=== PATIENT | female | born 1950 | race African-American/Black ===

== ENCOUNTER 2024-02-03 09:37 | Day surgery (SDC) | payer OTHER ==
[~2024-02-03] VITALS: Ht 162.6 cm; Wt 96.2 kg
[~2024-02-03 09:37] MED LIST: BALANCED SALT IRRIG SOLN 15ML ONE; BALANCED SALT IRRIG SOLN COMB1 500ML OP NR; CYCLOPENTOLATE HCL 1% OPHTH DROPS 2ML ONE; HYALURONATE SODIUM 10MG/ML 0.55ML SYRINGE IO ONE
[2024-02-03] MEDS ORDERED: HYALURONATE SODIUM 10MG/ML 0.55ML SYRINGE IO ONE ×2 (16:48→17:49)
[2024-02-03] MEDS ORDERED: MIDAZOLAM HCL 2 MG/2 ML VIAL ONE (17:08)
[2024-02-03] MEDS ORDERED: ONDANSETRON HCL 4MG/2ML INJ IV PRN (18:00)
[2024-02-03] MEDS ORDERED: HYDRALAZINE 20MG/ML VIAL IV NR (18:00)
[2024-02-03] MEDS ORDERED: MEPERIDINE HCL/PF 25MG/ML CPJ IV PRN (18:00)
[2024-02-03] MEDS: HYDROMORPHONE HCL/PF 1MG/ML INJ IV PRN (18:54)
[2024-02-03 19:20] VITALS: BP 131/74; PULSE 59; RESP 14
== END 2024-02-03 21:15 | disposition home or self-care (01) ==
LOC: OR 09:37
PROVIDERS: ATTEND Ophthalmology
DX: H25.89 Other age-related cataract (principal); M19.90 Unspecified osteoarthritis, unspecified site; F41.9 Anxiety disorder, unspecified; Z79.899 Other long term (current) drug therapy; Z98.890 Other specified postprocedural states
CPT/HCPCS: 66984; V2632; J3490 ×2; J2250; J1171; C1893; J2003